=== PATIENT | male | born 1970 | race Caucasian/White ===

== ENCOUNTER 2017-01-09 10:51 | Emergency (ER) | payer SELFPAY ==
[~2017-01-09] VITALS: Ht 175.3 cm; Wt 80.0 kg
[~2017-01-09 10:51] MED LIST: CEPH500C3 PO; DARV PO; IBUP100S PO; LORT7.5T3 PO; PARO10TA PO; QUET1TAB66 PO; TRAZ100T50 PO
[2017-01-09 10:57] VITALS: BP 136/93; PULSE 96; RESP 17; TEMP 98.2; O2SAT 96
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
--- NOTE | 2017-01-09 11:54 | RADRPT ---
EXAM DATE/TIME: 01/09/2017 11:26 [place] COMPARISON: No previous studies available for comparison. INDICATIONS : Patient smashed left hand with a wheelbarrel three days ago. Pain across posterior aspect. MEDICAL HISTORY : None. SURGICAL HISTORY : None. ENCOUNTER: Initial ACUITY: 3 days PAIN SCORE: 7/10 LOCATION: Left Hand, Posterior aspect. FINDINGS: Three view examination of the left hand demonstrates no soft tissue swelling, dislocation, or fractur e. The carpal bones appear intact. The interphalangeal and metacarpophalangeal joints are intact. Bony mineralization is normal. CONCLUSION: No evidence of significant soft tissue swelling or acute bony injury. Beka Nieves MD on January 09, 2017 at 11:50 Board Certified Radiologist. This report was verified electronically.
[2017-01-09] MEDS ORDERED: IBUP-232 PO (11:58)
== END 2017-01-09 12:05 | disposition home or self-care (01) ==
LOC: PHEFT 10:51
DX: S60.222A Contusion of left hand, initial encounter (principal); W23.0XXA Caught, crushed, jammed, or pinched between moving objects, initial encounter
CPT/HCPCS: 73130; 99283

== ENCOUNTER 2017-01-22 17:59 | Emergency (ER) | payer SELFPAY ==
[~2017-01-22 17:59] MED LIST changes: -CEPH500C3 PO; -DARV PO; +IBUP-232 PO; -IBUP100S PO; -LORT7.5T3 PO; -PARO10TA PO; -QUET1TAB66 PO; -TRAZ100T50 PO
== END 2017-01-22 18:57 | disposition left against medical advice (07) ==
LOC: PHED 17:59
DX: L98.9 Disorder of the skin and subcutaneous tissue, unspecified (principal)
CPT/HCPCS: 99281

== ENCOUNTER 2018-06-04 13:23 | Inpatient (IN) ==
[2018-06-04] MEDS ORDERED: Bisacodyl 10 MG Supp RECTAL PRN (17:45)
[2018-06-04] MEDS ORDERED: Aluminum/Magnesium/Simethacone Susp 30 ML UDC PO PRN (17:45)
[2018-06-04] MEDS: hydrALAZINE 25 MG Tablet PO SCH (21:13)
[2018-06-04] MEDS: Senna/Docusate Sodium 8.6/50 MG Tablet PO SCH (21:14)
[2018-06-05 09:57] LABS: Calcium 8.7 mg/dL (8.5-10.1); Carbon Dioxide 25.9 meq/L (21.0-32.0); Potassium 3.9 meq/L (3.5-5.1)
[2018-06-05 10:00] LABS: Chol/HDL Ratio 5.58 Ratio; HDL Cholesterol 34.2 mg/dL (40.0-60.0)
[2018-06-05] MEDS: hydrALAZINE 25 MG Tablet PO SCH ×4 (10:17→21:35)
[2018-06-05] MEDS: Senna/Docusate Sodium 8.6/50 MG Tablet PO SCH (10:17)
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
[2018-06-05 12:33] LABS: Hemoglobin A1c 4.5 % (4.3-6.0)
[2018-06-05] MEDS ORDERED: LORazepam 1 MG Tablet PO PRN (15:07)
[2018-06-05] MEDS ORDERED: Haloperidol Inj 5 MG/ML Ampul IV.PUSH PRN (15:07)
[2018-06-05] MEDS: FLUoxetine 10 MG Capsule PO SCH (16:12)
[2018-06-05] MEDS: Gabapentin 300 MG Capsule PO SCH (16:12)
[2018-06-06] MEDS: hydrALAZINE 25 MG Tablet PO SCH ×3 (06:37→23:16)
[2018-06-06] MEDS: Gabapentin 300 MG Capsule PO SCH (08:25)
[2018-06-06] MEDS: Multivitamin/Minerals Therapeutic Tablet PO SCH (08:25)
[2018-06-06] MEDS: Folic Acid 1 MG Tablet PO SCH (08:25)
--- NOTE | 2018-06-06 09:31 | P.CONIM ---
History of Present Illness Primary Care Provider: UNKNOWN History of Present Illness: Mr. Montana is a 48-year-old male. He was admitted on 05/27/2018 secondary to a self-inflicted laceration wound to the left neck. He acquired this by stabbing himself when police officers came to arrest him. He has had this surgically repaired at [facility]. He has returned here for further medical care and psychiatric care. Currently she is on a voluntary status on the [facility] psych floor. His primary complaint today is pain. He has been ambulatory. Blood pressures have been slightly elevated but this may be secondary to pain. He has no prior history of hypertension. Mild hyperlipidemia is found on fasting lipid profile. We discussed dietary changes, he is not interested in medications yet. Review of Systems Constitutional: No fevers, no chills no night sweats, no fatigue, no weakness Eyes: No eye pain, no blurry vision, no loss of vision ENT: No sore throat, no ear pain, no rhinorrhea Cardiovascular: No chest pain, no tachycardia, no palpitations, no syncope Respiratory: No wheezing, no cough, no shortness of breath Gastrointestinal: No abdominal pain, no black tarry stools, no bright red blood per rectum, no vomiting, no diarrhea Musculoskeletal: No joint pain, no muscle cramps, no stiffness, left neck pain Integumentary: No rash, no ulcers, no drainage Neurologic: No sensory loss, no loss of motor function, no dizziness Psychiatric: No behavioral changes, no hallucinations, no suicidal ideations [facility] - History History Provided By: Patient - Medical History Medical History: Medical History (This Medical Record has been edited. Action required.) ETOH abuse HTN (hypertension) Hypertension IVDU (intravenous drug user) - Surgical History Surgical History: Surgical History (This Medical Record has been edited. Action required.) H/O left knee surgery History of mandibular surgery - Tobacco History Second Hand Smoke Exposure: No Tobacco Use In Past 30 Days: No Smoking Status: Former smoker Tobacco Type: Cigarettes - Alcohol History How Often Do You Have a Drink Containing Alcohol: 2 to 3 times a week - Substance Use History Substance History: Active Abuse - Substance Use Type Crack/Cocaine Type: HEROIN Status: Active Route Used: Inhalation, Intravenously Frequency: 2-3/WEEK Reason for Use: Get High - Immunization History Tetanus Immunization: <5 Years Hx Influenza Vaccine This Season: Yes Medications and Allergies Active Medications: Active Medications Al Hydrox/Mg Hydrox/Simethicone (Mag-Al Plus Susp Liq) 30 ml PO Q6H PRN PRN Reason: DYSPEPSIA Al Hydroxide/Mg Hydroxide (Milk Of Magnesia Liq) 30 ml PO Q12H PRN PRN Reason: Mild Constipation Flumazenil (Romazecon Inj) 0.2 mg IV.PUSH Q1M PRN PRN Reason: OVERSEDATION Fluoxetine HCl (Prozac) 10 mg PO DAILY [facility] Last Admin: 06/05/18 16:12 Dose: 10 mg Folic Acid (Folic Acid) 1 mg PO DAILY [facility] Stop: 06/11/18 08:59 Last Admin: 06/06/18 08:25 Dose: 1 mg Gabapentin (Neurontin) 300 mg PO DAILY [facility] Last Admin: 06/06/18 08:25 Dose: 300 mg Haloperidol Lactate (Haldol Inj) 1 mg IV.PUSH Q15M PRN PRN Reason: for severe agitation Hydralazine HCl (Apresoline) 25 mg PO Q8HR [facility] Last Admin: 06/06/18 06:37 Dose: 25 mg Hydroxyzine HCl (Atarax) 25 mg PO Q6H PRN PRN Reason: ANXIETY Last Admin: 06/05/18 21:36 Dose: 25 mg Lorazepam (Ativan) 1 mg PO Q4H PRN PRN Reason: for CIWA 8-10 Lorazepam (Ativan) 2 mg PO Q2H PRN PRN Reason: for CIWA 11-14 Lorazepam (Ativan Inj) 2 mg IV.PUSH Q2H PRN PRN Reason: for CIWA 11-14 Lorazepam (Ativan Inj) 2 mg IV.PUSH Q1H PRN PRN Reason: for CIWA 15-20 Lorazepam (Ativan Inj) 2 mg IV.PUSH Q15M PRN PRN Reason: for CIWA > 20 Lorazepam (Ativan Inj) 1 mg IV.PUSH Q4H PRN PRN Reason: for CIWA 8-10 Multivitamins/Minerals (Theragran-M) 1 tab PO DAILY [facility] Stop: 06/11/18 08:59 Last Admin: 06/06/18 08:25 Dose: 1 tab Thiamine HCl (Vitamin B1) 100 mg PO DAILY [facility] Last Admin: 06/06/18 08:25 Dose: 100 mg Tramadol HCl (Ultram) 50 mg PO Q6H PRN PRN Reason: Pain 3 to 10 Trazodone HCl (Desyrel) 50 mg PO HS PRN PRN Reason: Insomnia Allergies Allergy/AdvReac Type Severity Reaction Status Date / Time No Known Allergies Uncoded 06/02/18 11:42 Home Medications Medication Instructions Recorded Confirmed Type bisacodyl 10 mg PO DAILY 06/02/18 06/03/18 History gabapentin 300 mg PO DAILY 06/02/18 06/03/18 History hydralazine 25 mg PO Q8HR 06/02/18 06/03/18 History mupirocin 1 unit TOPICAL BID 06/02/18 06/03/18 History propranolol 10 mg PO TID 06/02/18 06/03/18 History sennosides [senna] 8.6 mg PO BID 06/02/18 06/03/18 History Exam Vital signs: Vital Signs 06/05/18 17:51 06/06/18 01:00 06/06/18 05:24 Temperature 97.7 F 98.8 F 97.8 F Pulse Rate 84 73 71 Respiratory Rate 18 17 17 Blood Pressure 167/86 H 153/86 H 148/83 H Pulse Oximetry 98 96 99 Intake & Output 06/05/18 06/06/18 06/06/18 18:59 06:59 18:59 Intake Total 1080 / 1080 Balance 1080 / 1080 Weight 76.6 kg Intake: Oral 1080 / 1080 Other: Weight On Admission 76.6 kg Narrative: GENERAL: NAD, A&Ox3 HEAD: Normocephalic. NECK: Supple, trachea midline. No lymphadenopathy. EYES: No scleral icterus. No injection or drainage. CARDIOVASCULAR: Regular rate and rhythm without murmurs, gallops, or rubs. RESPIRATORY: Breath sounds equal bilaterally. No accessory muscle use. GASTROINTESTINAL: Abdomen soft, non-tender, nondistended. MUSCULOSKELETAL: No cyanosis, or edema. SKIN: Warm and dry. Repaired laceration at left neck with blue stitches NEURO: No focal neurological deficits. Results - Labs CBC & Chem 7: 06/05/18 08:40 Labs: Laboratory Results - last 24 hr 06/05/18 06/05/18 06/05/18 08:40 08:40 08:40 Sodium 139 Potassium 3.9 Chloride 105 Carbon Dioxide 25.9 Anion Gap 8 BUN 18 Creatinine 1.15 Estimated GFR 68 L Random Glucose 129 H Hemoglobin A1c 4.5 Calcium 8.7 Triglycerides 157 H Cholesterol 191 LDL Cholesterol, Calc 125 H HDL Cholesterol 34.2 L Cholesterol/HDL Ratio 5.58 TSH 2.860 Assessment and Plan - Plan 48-year-old male admitted to med psych floor secondary to attempted suicide and self injury, follow-up for left neck laceration, hypertension, hyperlipidemia. Depression Continue management per psychiatry Continue Prozac Hypertension Begin as needed clonidine Mild hypertension may be related to pain Left neck laceration Left neck pain Start Ultram for pain Plan is for removal of stitches prior to discharge Hyperlipidemia Dietary control for now Follow-up as an outpatient Avoid substance abuse (abdoulaye) DVT Prophylaxis Ambulatory
--- NOTE | 2018-06-06 12:13 | P.PNPSY ---
Subjective Chief Complaint: self-injury Remarks: Patient seen and examined with nurse. Chart reviewed. Case discussed with nursing staff. Patient has been transferred to the medical psychiatric unit overnight, although the reason for this is unclear. There is nothing in the hospitalist notes or patient's presentation on my examination to suggest an acute medical issue in need of management on the medical psychiatric unit. I have asked the nurse to confirm with the hospitalist, and we could consider returning the patient back to the general psychiatric unit. No behavioral issues noted overnight. On my examination today, the patient denies suicidal or homicidal ideation. Denies hallucinations. Mood is fair. Denies side effects from medications. No acute physical complaints. Vital Signs Temp Pulse Resp BP Pulse Ox 06/06/18 05:24 97.8 F 71 17 148/83 H 99 06/06/18 01:00 98.8 F 73 17 153/86 H 96 06/05/18 17:51 97.7 F 84 18 167/86 H 98 Intake and Output 06/05/18 06/06/18 06/06/18 22:59 06:59 14:59 Intake Total 360 / 360 Balance 360 / 360 Intake: Oral 360 / 360 Other: Weight 76.6 kg Weight On Admission 76.6 kg Laboratory Results - last 24 hr 06/05/18 08:40 Hemoglobin A1c 4.5 Labs reviewed. Review of Systems All other systems reviewed negative except as stated in HPI Mental Status Examination Appearance: Appropriate Consciousness: Alert Orientation: x4 Motor Activity: Other (No motoric abnormalities noted. No signs of withdrawal noted. CIWA scores have been 0.) Speech: Unremarkable Language: Adequate Fund of Knowledge: Adequate Attention and Concentration: Adequate Memory: Unremarkable (Grossly intact on clinical exam) Mood: Other (Fair) Affect: Appropriate Thought Process & Associations: Intact, Logical Thought Content: Appropriate Hallucination Type: None Delusion Type: None Suicidal Ideation: No Suicidal Plan: No Suicidal Intention: No Homicidal Ideation: No Homicidal Plan: No Homicidal Intention: No Insight: Fair Judgment: Impulsive Assessment and Plan - Assessment (1) Adjustment disorder with mixed disturbance of emotions and conduct Code(s): F43.25 - Adjustment disorder with mixed disturbance of emotions and conduct Status: Acute (2) Polysubstance abuse Code(s): F19.10 - Other psychoactive substance abuse, uncomplicated Status: Acute - Plan Plan: Continue Prozac as ordered. Continue to monitor on the inpatient unit. Hospitalist input noted and appreciated. Continue other medications and care as ordered. Justification for Continued Inpatient Stay: Monitoring for impairment and safety, none noted. Discharge Planning: Pending outcome of observation. Possible Friday discharge. Request Healthcare Surrogate/Guardian Advocate?: No
[2018-06-06] MEDS: FLUoxetine 10 MG Capsule PO SCH (14:35)
[2018-06-06] MEDS: traZODone 50 MG Tablet PO PRN (14:36)
[2018-06-07] MEDS: hydrALAZINE 25 MG Tablet PO SCH ×3 (05:25→21:48)
[2018-06-07] MEDS: Multivitamin/Minerals Therapeutic Tablet PO SCH (09:04)
[2018-06-07] MEDS: Folic Acid 1 MG Tablet PO SCH (09:04)
[2018-06-07] MEDS: FLUoxetine 10 MG Capsule PO SCH (09:05)
[2018-06-07] MEDS: Gabapentin 300 MG Capsule PO SCH (09:05)
--- NOTE | 2018-06-07 10:10 | P.PNIM ---
Subjective Interval history: No complaints from patient. Systolic blood pressures remain under 160 mmHg. Stitches removed today. Patient's medically stable for discharge when cleared by psychiatry. Physical Exam Vital signs: Vital Signs 06/06/18 19:23 Temperature 99.0 F Pulse Rate 92 H Respiratory Rate 20 Blood Pressure 151/76 H Pulse Oximetry 99 Narrative: GENERAL: NAD, A&Ox3 HEAD: Normocephalic. NECK: Supple, trachea midline. No lymphadenopathy. EYES: No scleral icterus. No injection or drainage. CARDIOVASCULAR: Regular rate and rhythm without murmurs, gallops, or rubs. RESPIRATORY: Breath sounds equal bilaterally. No accessory muscle use. GASTROINTESTINAL: Abdomen soft, non-tender, nondistended. MUSCULOSKELETAL: No cyanosis, or edema. SKIN: Warm and dry. Repaired laceration at left neck, stitches removed today. NEURO: No focal neurological deficits. Results - Labs CBC & Chem 7: 06/05/18 08:40 Assessment and Plan - Plan 48-year-old male admitted to med psych floor secondary to attempted suicide and self injury, follow-up for left neck laceration, hypertension, hyperlipidemia. Stitches removed today. Patient medically stable and cleared for discharge today. He will discharge on a simplified blood pressure treatment regime of lisinopril 20 mg daily for blood pressure control. Depression Continue management per psychiatry Continue Prozac Hypertension Slight elevation but stable Etiology for blood pressure elevation could be hospitalization PRN clonidine while hospitalized, but this will discontinue discharge Mild hypertension may be related to pain Lisinopril 20 mg daily at discharge and discontinue other blood pressure treatments Left neck laceration Left neck pain Discontinue pain treatments at discharge Stitches removed 06/07/2018 Hyperlipidemia Dietary control for now Follow-up as an outpatient Avoid substance abuse (beer) DVT Prophylaxis Ambulatory Discharge planning Medical team will sign off Patient stable for transfer down to non-medical psychiatry floor Stitches out laceration of neck on the left have been removed on 06/07/2018 No need for further follow-up regarding left neck laceration wound medically clear for discharge when cleared by psychiatry Medical team will sign off today
--- NOTE | 2018-06-07 12:48 | P.PNPSY ---
Subjective Chief Complaint: self-injury Remarks: Patient seen and examined with nurse. Chart reviewed. Case discussed with nursing staff. On my examination today, the patient is in good spirits. He is future oriented. No SI voiced. He says that his goal is to enter into a residential chemical dependency treatment program after returning home for a bit. Denies side effects from medications. No physical complaints. Vital Signs Temp Pulse Resp BP Pulse Ox 06/06/18 19:23 99.0 F 92 H 20 151/76 H 99 Labs reviewed. No new labs. Review of Systems All other systems reviewed negative except as stated in HPI Mental Status Examination Appearance: Appropriate Consciousness: Alert Orientation: x4 Motor Activity: Other (No signs of withdrawal noted. No motor abnormalities noted) Speech: Unremarkable Language: Adequate Fund of Knowledge: Adequate Attention and Concentration: Adequate Memory: Unremarkable (Grossly intact on clinical exam) Mood: Appropriate Affect: Appropriate Thought Process & Associations: Intact, Logical Thought Content: Appropriate Hallucination Type: None Delusion Type: None Suicidal Ideation: No Homicidal Ideation: No Insight: Adequate Judgment: Adequate Assessment and Plan - Assessment (1) Adjustment disorder with mixed disturbance of emotions and conduct Code(s): F43.25 - Adjustment disorder with mixed disturbance of emotions and conduct Status: Acute (2) Polysubstance abuse Code(s): F19.10 - Other psychoactive substance abuse, uncomplicated Status: Acute - Plan Plan: Continue Prozac as ordered. Continue to monitor on the inpatient unit. Hospitalist input appreciated. Continue other medications and care as ordered. Justification for Continued Inpatient Stay: Pending further observation Discharge Planning: Possible discharge tomorrow. Request Healthcare Surrogate/Guardian Advocate?: No
[2018-06-07 14:52] VITALS: RESP 18
[2018-06-07 18:29] VITALS: BP 146/77; PULSE 82; TEMP 98.1; O2SAT 95
[2018-06-07] MEDS: traZODone 50 MG Tablet PO PRN (22:30)
[2018-06-08] MEDS: hydrALAZINE 25 MG Tablet PO SCH (07:51)
[2018-06-08] MEDS: Gabapentin 300 MG Capsule PO SCH (08:33)
[2018-06-08] MEDS: FLUoxetine 10 MG Capsule PO SCH (08:33)
[2018-06-08] MEDS: Multivitamin/Minerals Therapeutic Tablet PO SCH (08:33)
[2018-06-08] MEDS: Folic Acid 1 MG Tablet PO SCH (08:34)
--- NOTE | 2018-06-08 12:18 | P.TTN ---
- Patient Problems Problems: 1. Discharge planning 2. Medication compliance 3. Knowledge deficit 4. Lack of coping skills - Progress Toward Goals Provider Present: Dr. Terri Trevino Provider Input: 06/08/2018; patient is on medication, possible dc Nurse(s) Present: RN Nurse Input: Patient is eating meals, and taking medication no behavior Psychiatric Counselors Present: Lorena Purdy [facility] Psychiatric Therapist Input: 06/08/2018; patient will be dc to his father's home when ready. Group Spec/RT/OT/MACKAY Present: Dalton Espinosa OT Group Spec/RT/OT/MACKAY Input: 06/08/2018; patient has not participated with activities - Documentation Teaching Recipient: Patient
--- NOTE | 2018-06-08 14:03 | P.PNADD ---
Addendum to Inpatient Note Additional information: Mr. Montana is being discharged today. For his BP, we switched his outpatient med from Lisinopril to Amlodipine 5mg Qday. Patient's creatinine is 1.15. No diabetes. Also, we will give him 3 day supply of Tramadol 50mg Q6hrs (#12 tablets). Checked [facility] database. Last opioid rx filled is on 05/05/2018 for 7 pills.
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
== END 2018-06-08 16:05 | disposition home or self-care (01) ==
LOC: H260 15:44 → H4EA 06-06 00:18
PROVIDERS: ADMIT Student in an Organized Health Care Education/Training Program; ATTEND Student in an Organized Health Care Education/Training Program